=== PATIENT | female | born 1990 | race Caucasian/White ===

== ENCOUNTER 2024-05-16 14:06 | Emergency (ER) | payer MEDICAID ==
[~2024-05-16] VITALS: Ht 165.1 cm; Wt 63.5 kg
[2024-05-16 14:10] VITALS: O2SAT 99
[2024-05-16 14:41] LABS: BASOPHILS # (AUTO) 0.1 K/UL (0.0-0.2); BASOPHILS % (AUTO) 0.5 % (0.0-2.0); EOSINOPHILS # (AUTO) 0.1 K/uL (0.0-0.7); EOSINOPHILS % (AUTO) 0.7 % (0.0-7.0); HEMATOCRIT 34.7 % (31.2-41.9); HEMOGLOBIN 11.8 g/dL (10.9-14.3); LYMPHOCYTES # (AUTO) 2.2 K/uL (0.8-4.8); LYMPHOCYTES % (AUTO) 19.3 % (20.5-51.5); MEAN CORPUSCULAR HEMOGLOBIN 29.9 uug (24.7-32.8); MEAN CORPUSCULAR HGB CONC 34 g/dL (32.3-35.6); MEAN CORPUSCULAR VOLUME 88.1 fL (75.5-95.3); MONOCYTES # (AUTO) 0.6 K/uL (0.1-1.30); MONOCYTES % (AUTO) 5.1 % (0.0-11.0); NEUTROPHILS # (AUTO) 8.6 K/uL (1.8-8.9); NEUTROPHILS % (AUTO) 74.4 % (38.5-71.5); PLATELET COUNT (AUTO) 284 K/uL (179-408); RED BLOOD CELL COUNT(AUTO) 3.94 MIL/uL (3.63-4.92); RED CELL DISTRIBUTION WIDTH 12.6 % (12.3-17.7); WHITE BLOOD COUNT (AUTO) 11.6 K/uL (3.8-11.8)
[2024-05-16 14:44] LABS: DIFFERENTIAL COMMENT 1
[2024-05-16 14:49] LABS: CREATININE 0.6 mg/dL (0.6-1.3); POTASSIUM 3.4 mmol/L (3.5-5.1)
[2024-05-16 14:55] LABS: ALBUMIN 3.4 g/dL (3.4-5.0); BILIRUBIN,DIRECT 0.1 mg/dL (0.0-0.2); BILIRUBIN,TOTAL 0.3 mg/dL (0.2-1.0); TOTAL PROTEIN, SERUM 7.1 g/dL (6.4-8.2)
== END 2024-05-16 16:05 | disposition home or self-care (01) ==
LOC: ER 14:06
DX: O20.0 Threatened abortion (principal); R10.2 Pelvic and perineal pain; O09.291 Supervision of pregnancy with other poor reproductive or obstetric history, first trimester; Z3A.10 10 weeks gestation of pregnancy
CPT/HCPCS: 36415; 70030-TC; 85025; A4606; A4663